=== PATIENT | female | born 1935 | race Caucasian/White ===

== ENCOUNTER 2024-02-17 22:10 | Emergency (ER) | payer MEDICARE, OTHER ==
[2024-02-17] MEDS: 50% Dextrose in Water 50 ML Syringe IVPUSH ONE (22:20)
[2024-02-17 22:35] LABS: HEMATOCRIT 32.8 % (37.0-47.0); HEMOGLOBIN 10.2 g/dL (12.0-16.0); IMMATURE GRAN ABSOLUTE AUTO 0.05 10^3/uL (0.00-0.49); IMMATURE GRAN PERCENT AUTO 0.5 % (0.0-4.9); LYMPHOCYTES ABSOLUTE AUTO 0.79 10^3/uL (0.60-5.00); LYMPHOCYTES PERCENT AUTO 8.2 % (24-44); MEAN CORPUSCULAR HEMOGLOBIN 33.3 pg (27.0-32.0); MEAN CORPUSCULAR HGB CONC 31.1 g/dL (32.0-36.0); MEAN CORPUSCULAR VOLUME 107.2 fL (83.0-97.0); MONOCYTES ABSOLUTE AUTO 0.41 10^3/uL (0.00-1.50); MONOCYTES PERCENT AUTO 4.2 % (0-10); NEUTROPHILS ABSOLUTE AUTO 8.43 x10^3/uL (1.80-8.00); NEUTROPHILS PERCENT AUTO 87.1 % (41-71); PLATELET COUNT,PLT 316 10^3/uL (150-400); RED BLOOD CELL COUNT 3.06 x10^6/uL (4.00-5.50); WHITE BLOOD CELL COUNT,WBC 9.7 10^3/uL (4.0-11.0)
[2024-02-17 22:36] LABS: BLOOD UREA NITROGEN,BUN 42 mg/dL (7-18); CARBON DIOXIDE,CO2 17 mmol/L (21-32); CHLORIDE,CL 101 mEq/L (98-106); CREATININE 1.3 mg/dL (0.6-1.0); ESTIMATED GFR 39 mL/min (>=60); GLUCOSE RANDOM 23 mg/dL (75-99); POTASSIUM,K 4.2 mEq/L (3.5-5.0); SODIUM,NA 141 mEq/L (136-145)
[2024-02-17 22:37] LABS: ALANINE AMINOTRANSFERASE,ALT 7 U/L (12-78); ALBUMIN 2.8 g/dL (3.4-5.0); ALKALINE PHOSPHATASE 97 U/L (46-116); ASPARTATE AMNIOTRANSFERASE,AST 43 U/L (15-37); BILIRUBIN TOTAL 1.1 mg/dL (0.0-1.0); CALCIUM 10.6 mg/dL (8.4-10.1); PROTEIN TOTAL,TP 7.1 g/dL (6.4-8.2)
[2024-02-17] MEDS: Sodium Chloride 0.9% 1,000 ML IV ONE (22:45)
[2024-02-17 22:56] LABS: HEMOGLOBIN A1C 5.7 % (4.8-5.6)
[2024-02-17] MEDS: Dextrose 5%-0.45% NaCl 1,000 ML IV SCH (23:10)
[2024-02-17] MEDS: Hydrocortisone Sodium Succinate 100 MG/2 ML SDV IVPUSH ONE (23:29)
[2024-02-17 23:34] LABS: TSH ULTRASENSITIVE 3.21 uIU/mL (0.36-5.60)
[2024-02-17] MEDS: cefTRIAXone 1 GM Vial IVPUSH ONE (23:37)
[2024-02-17] MEDS: Sodium Chloride 0.9% 1,000 ML ONE (23:52)
[2024-02-17] MEDS: 50% Dextrose in Water 50 ML Syringe ONE (23:52)
[2024-02-18 00:28] LABS: APPEARANCE,URINE CLEAR (CLEAR); BILIRUBIN,URINE NEGATIVE (NEGATIVE); COLOR,URINE YELLOW (YELLOW); GLUCOSE,URINE NEGATIVE (NEGATIVE); KETONES,URINE NEGATIVE (NEGATIVE); LEUKOCYTE ESTERASE,URINE NEGATIVE (NEGATIVE); NITRITE,URINE NEGATIVE (NEGATIVE); OCCULT BLOOD,URINE MODERATE (NEGATIVE); PH,URINE 5.5 (4.5-8.0); PROTEIN,URINE 100 mg/dL (NEGATIVE); UROBILINOGEN,URINE 0.2 EU/dL (0.2-1.0)
[2024-02-18] MEDS: Norepinephrine Bit/D5W Premix 250 ML IV SCH (00:42)
[2024-02-18 00:48] LABS: BACTERIA,URINE NOT SEEN /HPF (NOT SEEN); HYALINE CASTS,URINE MODERATE /LPF (NOT SEEN); SQUAMOUS EPITHELIAL CELLS,UR FEW /HPF (NOT SEEN); WBC,URINE 0-5 /HPF (0-5)
[2024-02-18] MEDS: Sodium Chloride 0.9% 1,000 ML IV SCH (00:49)
[2024-02-18 02:01] VITALS: BP 71/48; PULSE 96
[2024-02-20 13:42] LABS: C PEPTIDE,SERUM 1.7 ng/mL (0.5-3.3); INSULIN 2 uIU/mL (3-25)
== END 2024-02-18 02:55 ==
LOC: CC.ED 22:10
DX: A41.9 Sepsis, unspecified organism (principal); R65.21 Severe sepsis with septic shock; K66.8 Other specified disorders of peritoneum; I10 Essential (primary) hypertension; Z87.891 Personal history of nicotine dependence; Z88.0 Allergy status to penicillin
CPT/HCPCS: 36415; 71045; 74176; 80053; 81001; 83036; 83525; 83605; 84305; 84443; 84484; 84681; 85025; 86140; 87040; 93005; 96361; 96365; 96366; 96375; 99285-25; J0696; J1720; J3490; J7030; J7799; U0002